=== PATIENT | male | born 1965 | race Caucasian/White ===

== ENCOUNTER 2020-01-10 06:01 | Emergency (ER) | payer BC ==
--- NOTE | 2020-01-10 06:05 | ED Physician Documentation ---
<Mina Olivo - Last Filed: 01/10/20 06:47> History of Present Illness - Stated complaint Stated Complaint: CP - History obtained from History obtained from: Patient (54-year-old male presents with chest pain this morning that woke him from his sleep no history of NH or stroke he does have a history of hypertension.Denies any history of PE or DVT.) Review of Systems Constitutional: reports: Reviewed and negative Eyes: reports: Reviewed and negative Ears: reports: Reviewed and negative Nose: reports: Reviewed and negative Throat: reports: Reviewed and negative Cardiac: reports: Chest pain / pressure Respiratory: reports: Reviewed and negative GI: reports: Reviewed and negative : reports: Reviewed and negative Skin: reports: Reviewed and negative Musculoskeletal: reports: Reviewed and negative Neurologic: reports: Reviewed and negative Psychiatric: reports: Reviewed and negative Endocrine: reports: Reviewed and negative Immunocompromised: reports: Reviewed and negative PD PAST MEDICAL HISTORY - Present Medications Home Medications: Ambulatory Orders Medication Instructions Recorded Confirmed Felodipine [Felodipine ER] 5 mg PO DAILY 01/10/20 01/10/20 Levothyroxine Sodium [Synthroid] 50 mcg PO DAILY 01/10/20 01/10/20 Metoprolol Succinate 100 mg PO DAILY 01/10/20 01/10/20 hydroCHLOROthiazide 50 mg PO DAILY 01/10/20 01/10/20 [Hydrochlorothiazide] - Allergies Allergies/Adverse Reactions: Allergies Allergy/AdvReac Type Severity Reaction Status Date / Time lisinopril AdvReac Unknown Verified 01/10/20 06:37 PD ED PE NORMAL - Vitals Vital signs reviewed: Yes - General General: Alert and oriented X 3, No acute distress, Well developed/nourished - HEENT HEENT: Atraumatic, PERRL, Moist mucous membranes - Neck Neck: Supple, no meningeal sign, No JVD - Cardiac Cardiac: RRR, No murmur, Strong equal pulses - Respiratory Respiratory: No respiratory distress, Clear bilaterally - Abdomen Abdomen: Normal bowel sounds, Soft, Non tender, Non distended, No organomegaly, Other (No midline abdominal pulsatile mass) - Derm Derm: Warm and dry - Extremities Extremities: No deformity - Neuro Neuro: Alert and oriented X 3, [employer] 2-12 intact, No motor deficit, No sensory deficit, Normal speech - Psych Psych: Normal mood, Normal affect Results - EKG (time done) 06:08 Rate: Other (no stemi) PD MEDICAL DECISION MAKING - ED course Complexity details: reviewed results, re-evaluated patient, considered differential (heart score 4, unable to PERC out patient secondary to age >50.), d/w patient, other (patient signed out at shift changed to Dr. Saunders) Departure - Departure Disposition: 01 Home, Self Care Clinical Impression: Chest pain Qualifiers: Chest pain type: unspecified Qualified Code(s): R07.9 - Chest pain, unspecified Condition: Stable Instructions: ED Chest Pain Atypical Unkn Cause Comments: Your testing today shows no evidence of a heart attack or other serious cause of your chest pain. However, it is very important that you follow-up with your primary care physician to discuss having a stress test done, to evaluate for potential underlying coronary artery disease, or clogging of the coronary arteries, which feed the heart muscle. Please call as soon as possible to set up an appointment for this. Discharge Date/Time: 01/10/20 08:53 <Theresa Saunders - Last Filed: 01/10/20 16:26> Results - Vitals Vitals: Vital Signs - 24 hr 01/10/20 01/10/20 01/10/20 06:05 06:44 07:34 Temperature 36.5 C Heart Rate 70 56 L 58 L Respiratory 18 18 15 Rate Blood Pressure 155/79 H 99/51 L 113/73 O2 Saturation 99 96 97 01/10/20 08:30 Temperature 37 C Heart Rate 58 L Respiratory 16 Rate Blood Pressure 111/86 H O2 Saturation 98 Oxygen O2 Source Room air - Labs Labs: Laboratory Tests 01/10/20 01/10/20 01/10/20 06:10 06:10 06:10 WBC 4.7 L RBC 4.72 Hgb 15.4 Hct 46.1 MCV 97.7 H MCH 32.6 H MCHC 33.4 RDW 12.9 Plt Count 163 MPV 10.2 Neut # (Auto) 2.3 Lymph # (Auto) 1.5 [place] # (Auto) 0.6 Eos # (Auto) 0.4 Baso # (Auto) 0.0 Absolute Nucleated RBC 0.00 Nucleated RBC % 0.0 PT 10.5 INR 0.9 APTT 29.2 Sodium 141 Potassium 3.8 Chloride 101 Carbon Dioxide 29 Anion Gap 11.0 BUN 12 Creatinine 0.9 Estimated GFR (MDRD) 88 L Glucose 98 Lactic Acid Calcium 9.0 Magnesium 2.2 Total Bilirubin 0.9 AST 84 H ALT 95 H Alkaline Phosphatase 69 Total Creatine Kinase 410 H Troponin I High Sens B-Natriuretic Peptide Total Protein 7.0 Albumin 4.1 Globulin 2.9 Albumin/Globulin Ratio 1.4 Lipase 62 H 01/10/20 01/10/20 01/10/20 06:10 06:10 06:10 WBC RBC Hgb Hct MCV MCH MCHC RDW Plt Count MPV Neut # (Auto) Lymph # (Auto) [place] # (Auto) Eos # (Auto) Baso # (Auto) Absolute Nucleated RBC Nucleated RBC % PT INR APTT Sodium Potassium Chloride Carbon Dioxide Anion Gap BUN Creatinine Estimated GFR (MDRD) Glucose Lactic Acid 1.3 Calcium Magnesium Total Bilirubin AST ALT Alkaline Phosphatase Total Creatine Kinase Troponin I High Sens 4.0 B-Natriuretic Peptide 157 H Total Protein Albumin Globulin Albumin/Globulin Ratio Lipase 01/10/20 07:58 WBC RBC Hgb Hct MCV MCH MCHC RDW Plt Count MPV Neut # (Auto) Lymph # (Auto) [place] # (Auto) Eos # (Auto) Baso # (Auto) Absolute Nucleated RBC Nucleated RBC % PT INR APTT Sodium Potassium Chloride Carbon Dioxide Anion Gap BUN Creatinine Estimated GFR (MDRD) Glucose Lactic Acid Calcium Magnesium Total Bilirubin AST ALT Alkaline Phosphatase Total Creatine Kinase Troponin I High Sens 3.1 B-Natriuretic Peptide Total Protein Albumin Globulin Albumin/Globulin Ratio Lipase PD MEDICAL DECISION MAKING - ED course ED course: The patient was signed out to me at change of shift by Dr. Olivo, pending repea t troponin. The patient was chest pain-free and without further complaints. His repeat troponin was negative. I felt the patient was stable for discharge home at this point. We have discussed that he needs to follow-up with his primary care physician to discuss potentially having a stress test done has been given the usual indications for return to the emergency department.
[2020-01-10] MEDS ORDERED: SODIUM CHLORIDE 0.9% 1,000 ML IV STA (06:13)
[2020-01-10] MEDS ORDERED: ASPIRIN 325 MG TABLET PO STA (06:14)
[2020-01-10 06:25] LABS: BASOPHILS % (AUTO) 0.6 %; EOSINOPHILS # (AUTO) 0.4 10^3/uL (0.0-0.7); EOSINOPHILS % (AUTO) 7.6 %; HGB - HEMOGLOBIN 15.4 g/dL (14.0-18.0); LYMPHOCYTES # (AUTO) 1.5 10^3/uL (1.5-3.5); LYMPHOCYTES % (AUTO) 31.6 %; MEAN CORPUSCULAR HEMOGLOBIN 32.6 pg (27.0-31.0); MEAN CORPUSCULAR HGB CONC 33.4 g/dL (32.0-36.0); MEAN CORPUSCULAR VOLUME 97.7 fL (80.0-94.0); MEAN PLATELET VOLUME 10.2 fL (7.4-11.4); MONOCYTES # (AUTO) 0.6 10^3/uL (0.0-1.0); MONOCYTES % (AUTO) 11.6 %; NEUTROPHILS # (AUTO) 2.3 10^3/uL (1.5-6.6); PLT - PLATELET COUNT 163 10^3/uL (130-450); RED BLOOD COUNT 4.72 10^6/uL (4.70-6.10); RED CELL DISTRIBUTION WIDTH 12.9 % (12.0-15.0); WHITE BLOOD COUNT 4.7 x10^3/uL (4.8-10.8)
[2020-01-10] MEDS: NITROGLYCERIN SL 0.4 MG TABLET SL PRN ×2 (06:25→06:29)
[2020-01-10 06:28] LABS: INR 0.9 (0.8-1.2); PT - PROTHROMBIN TIME 10.5 secs (9.9-12.6)
[2020-01-10 06:35] LABS: PARTIAL THROMBOPLASTIN TIME 29.2 secs (24.9-33.3)
[2020-01-10 06:37] LABS: ALBUMIN 4.1 g/dL (3.2-5.5); ALBUMIN/GLOBULIN RATIO 1.4 (1.0-2.2); BILIRUBIN,TOTAL 0.9 mg/dL (0.2-1.0); CREATININE 0.9 mg/dL (0.6-1.2); MAGNESIUM 2.2 mg/dL (1.7-2.8)
--- NOTE | 2020-01-10 08:16 | XRAY Report ---
PROCEDURE: Chest 1 View X-Ray INDICATIONS: Chest pain TECHNIQUE: One view of the chest was acquired. COMPARISON: None FINDINGS: Surgical changes and devices: None. Lungs and pleura: No pleural effusions or pneumothorax. Lungs are clear. Mediastinum: Mediastinal contours appear normal. Heart size is normal. Bones and chest wall: No suspicious bony lesions. Overlying soft tissues appear unremarkable. IMPRESSION: No acute cardiopulmonary process demonstrated radiographically. Reviewed by: Pierre Molina MD on 01/10/2020 8:15 AM PDT Approved by: Pierre Molina MD on 01/10/2020 8:15 AM PDT Station ID: [id number]
[2020-01-10 08:53] VITALS: BP 111/86
== END 2020-01-10 08:53 | disposition home or self-care (01) ==
LOC: ED 06:01
DX: R07.9 Chest pain, unspecified (principal); I10 Essential (primary) hypertension
CPT/HCPCS: 36415; 71045; 80053; 82550; 83605; 83690; 83735; 83880; 84484; 85025; 85610; 85730; 93005; 99283; 99284; A9270